=== PATIENT | male | born 1970 | race Caucasian/White ===

== ENCOUNTER → 2025-01-23 | Outpatient (REF) | payer OTHER ==
[~2025-01-23] MED LIST: IOPAMIDOL 370 MG/ML 100 ML INFUS..BTL INJ ONE; SODIUM CHLORIDE 0.9% 250ML 250 ML ONE; SODIUM CHLORIDE 0.9% 500ML 500 ML ONE
== END ==
LOC: CT 11:24
PROVIDERS: ATTEND Urology
DX: D48.3 Neoplasm of uncertain behavior of retroperitoneum (principal); R31.21 Asymptomatic microscopic hematuria
CPT/HCPCS: 72194; 74178; J7040; J7050; Q9967

== ENCOUNTER 2025-03-07 01:39 | Emergency (ER) | payer OTHER ==
[~2025-03-07] VITALS: Ht 185.4 cm; Wt 90.7 kg
[2025-03-07 01:43] VITALS: PULSE 61; RESP 18; TEMP 98.7
[2025-03-07] MEDS ORDERED: LIDOCAINE JELLY 2% 10ML URO-JET TOP ONE (02:00)
[2025-03-07] MEDS ORDERED: LIDOCAINE JELLY 2% 10ML URO-JET ONE (02:00)
[2025-03-07] MEDS ORDERED: CEPHALEXIN500 MG PO (02:20)
[2025-03-07 02:52] VITALS: BP 141/93; O2SAT 100
== END 2025-03-07 02:44 | disposition home or self-care (01) ==
LOC: ER 01:51
DX: R33.9 Retention of urine, unspecified (principal); R10.30 Lower abdominal pain, unspecified; N42.9 Disorder of prostate, unspecified
CPT/HCPCS: 51700; 87086; 99283

== ENCOUNTER 2025-03-13 06:01 | Inpatient (IN) | payer OTHER ==
[2025-03-13] VITALS (7 sets, daily range): BP systolic 130–147; BP diastolic 79–84; PULSE 56–76; RESP 14–18; TEMP 97.5–98.2; O2SAT 96–100
[~2025-03-13] VITALS: Ht 185.4 cm; Wt 90.8 kg
[~2025-03-13 06:01] MED LIST changes: +CEPHALEXIN500 MG PO; -IOPAMIDOL 370 MG/ML 100 ML INFUS..BTL INJ ONE; -SODIUM CHLORIDE 0.9% 250ML 250 ML ONE; -SODIUM CHLORIDE 0.9% 500ML 500 ML ONE
[2025-03-13] MEDS: CEFTRIAXONE 1 GM VIAL ONE (06:24)
[2025-03-13] MEDS: GENTAMICIN 80MG/NS 100 ML 200 ML IV ONE (06:25)
[2025-03-13] MEDS: SODIUM CHLORIDE 0.9% 1000ML 1,000 ML ONE (06:25)
[2025-03-13 06:57] LABS: BASOPHILS % 0.6 % (0.0-1.0); EOSINOPHILS % 2.9 % (0.0-6.0); LYMPHOCYTES % 28.7 % (18.0-39.1); MONOCYTES % 12.9 % (4.4-11.3); NEUTROPHILS % 54.7 % (38.7-80.0); RED CELL DISTRIBUTION WIDTH 12.6 % (11.7-14.4)
[2025-03-13] MEDS ORDERED: LIDOCAINE HCL 2% LOCAL INJ 5 ML SDV VIAL INJ ONE (07:16)
[2025-03-13] MEDS ORDERED: MIDAZOLAM HCL 2 MG/2 ML VIAL ONE (07:16)
[2025-03-13] MEDS ORDERED: ROCURONIUM BROMIDE 1 ML IV ONE (07:16)
[2025-03-13] MEDS ORDERED: FENTANYL CITRATE/PF 100MCG/2 ML INJ ONE ×2 (07:16→08:24)
[2025-03-13] MEDS ORDERED: SEVOFLURANE INHAL SOLN 250 ML PEN BTL ONE (07:16)
[2025-03-13] MEDS ORDERED: PROPOFOL IV EMULSION 10 MG/ML 20 ML VIAL ONE (07:16)
[2025-03-13] MEDS ORDERED: ACETAMINOPHEN 1000 MG/100 ML 100 ML IV ONE (07:16)
[2025-03-13 07:33] LABS: EST GLOMERULAR FILTRATION RATE 103.0 ML/MIN (>=60)
[2025-03-13] MEDS ORDERED: DEXAMETHASONE SOD PHOS INJ 4 MG/ML SDV ONE (08:02)
[2025-03-13] MEDS ORDERED: ONDANSETRON HCL INJ 2MG/ML 2ML 2 MG/ML VIAL ONE (08:02)
[2025-03-13] MEDS ORDERED: SUGAMMADEX SODIUM 200 MG/2 ML VIAL IV ONE (08:42)
[2025-03-13] MEDS ORDERED: FUROSEMIDE INJ 10 MG/ML 4 ML VIAL ONE (08:44)
[2025-03-13] MEDS ORDERED: SODIUM CHLORIDE 0.9% 1000ML 1,000 ML ONE (08:46)
[2025-03-13] MEDS ORDERED: DIPHENHYDRAMINE HCL 25 MG CAP PO PRN (09:00)
[2025-03-13] MEDS: SENNA-S TABLET PO SCH (09:00)
[2025-03-13] MEDS ORDERED: ACETAMINOPHEN 1000 MG/100 ML IV PRN (09:00)
[2025-03-13] MEDS ORDERED: ONDANSETRON HCL INJ 2MG/ML 2ML 2 MG/ML VIAL IV PRN (09:00)
[2025-03-13] MEDS: FENTANYL CITRATE/PF 100MCG/2 ML INJ ONE (09:24)
[2025-03-13 09:25] LABS: BASOPHILS % 0.7 % (0.0-1.0); EOSINOPHILS % 1.8 % (0.0-6.0); LYMPHOCYTES % 20.8 % (18.0-39.1); MONOCYTES % 7.6 % (4.4-11.3); NEUTROPHILS % 68.9 % (38.7-80.0); RED CELL DISTRIBUTION WIDTH 12.4 % (11.7-14.4)
[2025-03-13 10:47] LABS: EST GLOMERULAR FILTRATION RATE 103.0 ML/MIN (>=60)
[2025-03-13] MEDS: SODIUM CHLORIDE 0.9% 1000ML 1,000 ML IV SCH (10:59)
[2025-03-13] MEDS: ACETAMINOPHEN/CODEINE 300MG - 30MG TAB PO PRN (11:31)
[2025-03-13] MEDS: PHENAZOPYRIDINE HCL 100 MG TAB PO PRN (11:31)
[2025-03-14] VITALS (11 sets, daily range): BP systolic 122–153; BP diastolic 72–87; PULSE 54–75; RESP 16–20; TEMP 97.1–98.4; O2SAT 95–99
[2025-03-14 05:11] LABS: BASOPHILS % 0.1 % (0.0-1.0); EOSINOPHILS % 0.1 % (0.0-6.0); LYMPHOCYTES % 12.5 % (18.0-39.1); MONOCYTES % 7.7 % (4.4-11.3); NEUTROPHILS % 79.2 % (38.7-80.0); RED CELL DISTRIBUTION WIDTH 12.4 % (11.7-14.4)
[2025-03-14 05:45] LABS: EST GLOMERULAR FILTRATION RATE 98.0 ML/MIN (>=60)
[2025-03-14] MEDS: SENNA-S TABLET PO SCH (10:32)
[2025-03-15 03:02] VITALS: BP 154/81; PULSE 68; RESP 18; TEMP 97.9; O2SAT 96
[2025-03-15 05:36] LABS: BASOPHILS % 0.7 % (0.0-1.0); EOSINOPHILS % 2.4 % (0.0-6.0); LYMPHOCYTES % 31.8 % (18.0-39.1); MONOCYTES % 12.4 % (4.4-11.3); NEUTROPHILS % 52.6 % (38.7-80.0); RED CELL DISTRIBUTION WIDTH 12.7 % (11.7-14.4)
[2025-03-15 05:53] LABS: EST GLOMERULAR FILTRATION RATE 88.0 ML/MIN (>=60)
[2025-03-15 07:35] VITALS: PULSE 72; RESP 16; O2SAT 97
[2025-03-15 08:02] VITALS: BP 143/90; PULSE 80; RESP 16; TEMP 97.7; O2SAT 97
[2025-03-15 09:18] VITALS: BP 143/90; PULSE 80; RESP 16; TEMP 97.7; O2SAT 97
[2025-03-15 11:17] VITALS: BP 152/84; PULSE 49; TEMP 97.9; O2SAT 100
[2025-03-15 13:30] VITALS: PULSE 76; RESP 16; O2SAT 96
== END 2025-03-15 17:39 | disposition home or self-care (01) | DRG 713 ==
LOC: OR 06:01 → PACU V 08:59 → MED/SURG 10:10
PROVIDERS: ADMIT Internal Medicine; ATTEND Internal Medicine
PROC: 0T9B70Z Drainage of Bladder with Drainage Device, Via Natural or Artificial Opening (ICD-10-PCS; 2025-03-13)
PROC: 0T7D8ZZ Dilation of Urethra, Via Natural or Artificial Opening Endoscopic (ICD-10-PCS; 2025-03-13)
PROC: BT141ZZ Fluoroscopy of Kidneys, Ureters and Bladder using Low Osmolar Contrast (ICD-10-PCS; 2025-03-13)
PROC: 0VB08ZZ Excision of Prostate, Via Natural or Artificial Opening Endoscopic (ICD-10-PCS; principal; 2025-03-13 07:54)
DX: N40.1 Benign prostatic hyperplasia with lower urinary tract symptoms (principal); N13.8 Other obstructive and reflux uropathy; N39.0 Urinary tract infection, site not specified; R33.8 Other retention of urine; R31.0 Gross hematuria; N28.1 Cyst of kidney, acquired; N35.912 Unspecified bulbous urethral stricture, male; Z87.891 Personal history of nicotine dependence
CPT/HCPCS: 36415; 74420; 80048; 83735; 85025; 87086; 88305; 93005; 94799; C1758; J0696; J1100; J1580; J1938; J2003; J2250; J2405; J2543; J7030

== ENCOUNTER → 2025-03-27 | Outpatient (REF) | payer OTHER ==
[~2025-03-27] MED LIST changes: +IOPAMIDOL 370 MG/ML 100 ML INFUS..BTL INJ ONE; +SODIUM CHLORIDE 0.9% 500ML 500 ML ONE
== END ==
LOC: CT 11:39
PROVIDERS: ATTEND Urology
DX: R31.21 Asymptomatic microscopic hematuria (principal); N35.919 Unspecified urethral stricture, male, unspecified site; T19.0XXA Foreign body in urethra, initial encounter; D48.7 Neoplasm of uncertain behavior of other specified sites
CPT/HCPCS: 72194; J7040; Q9967